=== PATIENT | female | born 1990 ===

== ENCOUNTER 2018-09-04 09:13 | Emergency (ER) | payer OTHER ==
[~2018-09-04] VITALS: Ht 154.9 cm; Wt 59.9 kg
== END 2018-09-04 14:39 | disposition home or self-care (01) ==
LOC: ER 09:13
DX: R10.2 Pelvic and perineal pain (principal)

== ENCOUNTER 2018-09-16 08:09 | Emergency (ER) | payer OTHER ==
[~2018-09-16] VITALS: Ht 157.5 cm; Wt 59.9 kg
[2018-09-16] MEDS ORDERED: CEPHALEXIN500 M1 (08:34)
== END 2018-09-16 10:23 | disposition home or self-care (01) ==
LOC: ER 08:09
DX: O03.9 Complete or unspecified spontaneous abortion without complication (principal)